=== PATIENT | female | born 1945 | race Caucasian/White ===

== ENCOUNTER 2020-06-23 16:09 | Emergency (ER) | payer MEDICARE, OTHER, SELFPAY ==
[2020-06-23 16:17] VITALS: BP 137/59; PULSE 78; RESP 18; TEMP 36.9; O2SAT 96
--- NOTE | 2020-06-23 16:26 | ED.EPISTAXIS ---
HPI - Epistaxis General Chief complaint: Epistaxis Stated complaint: nose bleed Time Seen by Provider: 06/23/20 16:40 Source: patient Mode of arrival: ambulatory Limitations: no limitations History of Present Illness HPI Narrative: Gely Collado is a 74 yo female with a fib, chronic anticoagulation,CHF, HTN, high cholesterol, copd, GERD, arthritis, exzema, who comes to express care with a nosebleed that started about a week ago on and off but has been bleeding pretty steadily for the last 2 to 3 hours. Is on Coumadin and has had difficulty with this in the past. Patient is coughing/clearing her throat because of the blood running down her posterior pharynx Related Data Home Medications Medication Instructions Recorded Confirmed Coumadin 1.5 tab-cap PO DAILY 06/23/20 06/23/20 famotidine 40 mg PO BID 06/23/20 06/23/20 sertraline 50 mg PO DAILY 06/23/20 06/23/20 sertraline 100 mg PO DAILY 06/23/20 06/23/20 Allergies Allergy/AdvReac Type Severity Reaction Status Date / Time amlodipine Allergy Mild Rash Verified 06/23/20 17:03 FLU VACCINE Allergy Intermediate rash Uncoded 03/26/16 15:01 Review of Systems Review of Systems: Narrative: CONSTITUTIONAL: Denies fever, chills, sweats. EYES: Denies visual changes, redness, discharge. ENT: Denies rhinorrhea, congestion, sore throat, otalgia. Severe nosebleed CARDIOVASCULAR: Denies chest pain, palpitations, edema. RESPIRATORY: Denies dyspnea, wheezing, cough GASTROINTESTINAL: Denies abdominal pain, nausea, vomiting, diarrhea. GENITOURINARY: Denies dysuria, hematuria, abnormal discharge SKIN: Denies rash or itching. NEUROLOGIC: Denies numbness, or focal weakness. PSYCHIATRIC: Denies anxiety or depression. [facility] Past Medical History Medical History A-fib CHF (congestive heart failure) COPD (chronic obstructive pulmonary disease) Eczema High cholesterol HTN (hypertension) Family History Family History Other Heart disease Hypertension Social History Social History (Updated 06/23/20 @ 16:55 by Purnima Lux CNP) Smoking status: Former smoker Alcohol intake: current Comments At time of signature, I agree with nursing past medical, surgical, social and family history. There is no relevant family history pertinent to the presenting complaint. Exam Narrative: Exam Narrative: GENERAL: This is a well-nourished, well-developed patient, in moderate distress. HEAD: normocephalic, atraumatic. EYES: Sclera clear/white. Vision is grossly intact. EARS: External ears normal, Hearing grossly intact. NOSE: External nose normal -gross nose bleed with continual bleeding, coughing. THROAT: Mucous membranes moist, posterior pharynx bllod in posterior pharynx NECK: Neck supple, non-tender CARDIOVASCULAR: Regular rate and rhythm without murmurs, gallops, or rubs. RESPIRATORY: Clear to auscultation. Breath sounds equal bilaterally. No wheezes, rales, or rhonchi. GASTROINTESTINAL: Abdomen soft, SKIN: warm, intact with no suspicious lesions or rash, good texture and turgor. NEURO: awake, alert, and oriented to person, place and time. There were no obvious focal neurologic abnormalities. Steady gait EXTREMITIES: Normal range of motion. BACK: Nontender without deformity Course Course Emergency Course: Came to express care with severe nose bleed- is on coumadin Medium rhino rocket inserted and pt observed for 20 minutes- to follow up with ENT - and call pcp on Thursday. If bleeding recurs - go to ER Vital Signs Vital signs: Vital Signs Temperature 98.4 F 06/23/20 16:17 Pulse Rate 78 06/23/20 16:17 Respiratory Rate 18 06/23/20 16:17 Blood Pressure 137/59 L 06/23/20 16:17 Pulse Oximetry 96 06/23/20 16:17 Temperature 98.4 F 06/23/20 16:17 Pulse Rate 78 06/23/20 16:17 Respiratory Rate 18 06/23/20 16:17 Blood Pressure 137/59 L 06/23/20
== END 2020-06-23 17:17 | disposition home or self-care (01) ==
PROVIDERS: Emergency Provider Nurse Practitioner
DX: R04.0 Epistaxis (principal); Z87.891 Personal history of nicotine dependence; I48.91 Unspecified atrial fibrillation; I11.0 Hypertensive heart disease with heart failure; I50.9 Heart failure, unspecified; E78.00 Pure hypercholesterolemia, unspecified; J44.9 Chronic obstructive pulmonary disease, unspecified; K21.9 Gastro-esophageal reflux disease without esophagitis; M19.90 Unspecified osteoarthritis, unspecified site; Z79.01 Long term (current) use of anticoagulants
CPT/HCPCS: 30901; 99212; G0463

== ENCOUNTER 2020-09-11 10:30 | Emergency (ER) | payer MEDICARE, OTHER, SELFPAY ==
--- NOTE | ~2020-09-11 | XR_ITS ---
XR chest 2V DATE: 09/11/2020 11:01 INDICATION: Shortness of breath for 2 days. History of atrial fibrillation, congestive heart failure TECHNIQUE: 2 views COMPARISON: None FINDINGS: There is moderate elevation left leaf of the diaphragm and mild discoid atelectasis or scar ring in the left mid and lower lung. The lungs otherwise appear clear. No pleural effusion or pulmona ry vascular congestion or pneumothorax. Heart size is within normal limits. Is aortic calcification and mild tortuosity. There is prominent osteoarthritic change at both glenohumeral joints. There is degenerative spurring of the thoracic and lumbar spine. Diffuse osteopenia. Status post cholecystectomy. IMPRESSION: Moderate elevation left diaphragm Mild discoid atelectasis and/or scarring of left lung No active pulmonary disease is noted otherwise Reviewed, dictated and finalized at location [facility]. [facility]
--- NOTE | 2020-09-11 10:42 | ECG_ITS ---
Measurements Intervals [place] Rate: 65 P: 66 CA: 162 QRS: 20 QRSD: 110 T: 74 QT: 427 QTc: 447 Interpretive Statements SINUS RHYTHM INTRAVENTRICULAR CONDUCTION DELAY BORDERLINE ST-T WAVE ABNORMALITY- HIGH LATERAL LEADS BORDERLINE ECG Electronically Signed On 09-11-2020 10:57:17 [employer] by Duc Menendez D.O.
--- NOTE | 2020-09-11 10:48 | ED.CHESTPAIN ---
HPI - Chest Pain General Chief Complaint: Chest Pain Stated Complaint: CP History of Present Illness HPI narrative: Patient is a 74-year-old female who presents with multiple nonspecific complaints. She reports gassy and bloated , intermittent left-sided chest pain, lower abdominal pain, shakiness and mild nausea x 1 day. Patient has an extensive medical history that includes a fib, chronic anticoagulation,CHF, HTN, high cholesterol, copd, GERD, TIA, and COPD. She is also a current smoker. She denies taking over the counter medications for relief at this time. MD complaint: chest discomfort Pertinent past history: coronary artery disease Related Data Home Medications Medication Instructions Recorded Confirmed albuterol 90 mcg INHALATION Q6H PRN 09/11/20 09/11/20 ascorbic acid (vitamin C) 500 mg PO DAILY 09/11/20 09/11/20 cetirizine [Zyrtec] 10 mg PO DAILY 09/11/20 09/11/20 cholecalciferol (vitamin D3) 50 mcg PO DAILY 09/11/20 09/11/20 clobetasol-emollient 1 applic TOPICAL BID 09/11/20 09/11/20 conjugated estrogens [Premarin] 0.3 mg PO DAILY 09/11/20 09/11/20 famotidine 40 mg PO BID 09/11/20 09/11/20 fluticasone propionate [Flonase] 1 mcg INTRANASAL DAILY 09/11/20 09/11/20 levothyroxine 25 mcg PO DAILY 09/11/20 09/11/20 lisinopril 10 mg PO DAILY 09/11/20 09/11/20 loratadine 10 mg PO DAILY 09/11/20 09/11/20 montelukast [Singulair] 10 mg PO DAILY 09/11/20 09/11/20 roflumilast [Daliresp] 500 mcg PO DAILY 09/11/20 09/11/20 sertraline 25 mg PO DAILY 09/11/20 09/11/20 tiotropium-olodaterol [Stiolto 2 puff INHALATION DAILY 09/11/20 09/11/20 Respimat] triamcinolone acetonide 1 applic TOPICAL BID 09/11/20 09/11/20 vitamin E 400 unit PO DAILY 09/11/20 09/11/20 warfarin 5.5 mg PO DAILY 09/11/20 09/11/20 Allergies Allergy/AdvReac Type Severity Reaction Status Date / Time amlodipine Allergy Mild Rash Verified 09/11/20 10:57 FLU VACCINE Allergy Intermediate rash Uncoded 03/26/16 15:01 Review of Systems Review of Systems: Narrative: CONSTITUTIONAL: Denies fever, chills, or sweats. EYES: Denies visual changes, redness, or discharge. ENT: Denies rhinorrhea, congestion, sore throat, or otalgia. CARDIOVASCULAR: Reports chest pain, palpitations, denies edema. RESPIRATORY: Reports dyspnea GASTROINTESTINAL: Reports abdominal pain, nausea, and bloating. GENITOURINARY: Denies dysuria or hematuria. SKIN: Denies rash or itching. MUSCULOSKELETAL: Reports upper back pain NEUROLOGIC: Denies headache, numbness, dizziness. Reports generalized weakness. PSYCHIATRIC: Denies anxiety or depression. [facility] Past Medical History Medical History (Updated 09/11/20 @ 11:49 by ELOISE Renae) A-fib Arthritis CHF (congestive heart failure) COPD (chronic obstructive pulmonary disease) Depression Eczema GERD (gastroesophageal reflux disease) High cholesterol HTN (hypertension) Hypothyroidism TIA (transient ischemic attack) Surgical History Surgical History History of appendectomy Encapsulated carcinoma per chart Hx of cholecystectomy Family History Family History Other Heart disease Hypertension Social History Social History Smoking status: Former smoker Alcohol intake: current Comments At the time of signature, I have reviewed and agree with nursing past medical, surgical, social, and family history unless otherwise noted. Please see nursing chart for further information. There is no relevant family history pertinent to the presenting complaint. Exam Narrative: Exam Narrative: GENERAL: Well-appearing, well-nourished, and in no acute distress. HEAD: Normocephalic, atraumatic. EYES: EOMI. No redness or drainage. Conjunctiva are normal. ENT: Mucous membranes pink and moist. NECK: AROM. Supple. No lymphadenopathy. CHEST: No respiratory distress. Clear to
[2020-09-11 10:50] VITALS: BP 156/62; PULSE 73; RESP 24; TEMP 36.6; O2SAT 99
[2020-09-11 11:21] VITALS: BP 156/62; PULSE 73; RESP 24; TEMP 36.6; O2SAT 99
== END 2020-09-11 11:50 | disposition left against medical advice (07) ==
PROVIDERS: Emergency Provider Nurse Practitioner; PCP Internal Medicine
DX: R07.9 Chest pain, unspecified (principal); I48.91 Unspecified atrial fibrillation; M19.90 Unspecified osteoarthritis, unspecified site; J44.9 Chronic obstructive pulmonary disease, unspecified; F32.9 Major depressive disorder, single episode, unspecified; K21.9 Gastro-esophageal reflux disease without esophagitis; E78.00 Pure hypercholesterolemia, unspecified; I11.0 Hypertensive heart disease with heart failure; I50.9 Heart failure, unspecified; E03.9 Hypothyroidism, unspecified; Z86.73 Personal history of transient ischemic attack (TIA), and cerebral infarction without residual deficits; Z79.01 Long term (current) use of anticoagulants; F17.200 Nicotine dependence, unspecified, uncomplicated
CPT/HCPCS: 71046; 93005; 99213; G0463